=== PATIENT | female | born 1975 | race Two or more races ===

== ENCOUNTER 2020-07-27 18:48 | Emergency (ER) | payer MEDICAID ==
[~2020-07-27] VITALS: Ht 160 cm; Wt 87.1 kg
[2020-07-27 19:20] LABS: Basophils # (auto) 0.1 10 ^3/uL (0-0.2); Eosinophils # (auto) 0.7 10 ^3/uL (0-0.8); Lymphocytes # (auto) 2.7 10 ^3/uL (0.4-5.4); Neutrophils # (auto) 4.7 10 ^3/uL (1.6-8.6)
[2020-07-27 19:22] LABS: Basophils % (auto) 1.5 % (0.0-2.0); Eosinophils % (auto) 7.7 % (0.0-7.0); Hemoglobin 13.3 g/dL (12.2-16.2); Lymphocytes % (auto) 31.2 % (10.0-50.0); Mean Corpuscular Hemoglobin 25.8 pg (28.0-32.0); Mean Corpuscular Hgb Conc. 33.1 g/dL (32.0-36.0); Monocytes # (auto) 0.5 10 ^3/uL (0-1.3); Monocytes % (auto) 5.9 % (0.0-12.0); Neutrophils % (auto) 53.7 % (37.0-80.0); Platelet Count (auto) 426 10^3/uL (140-450); Red Blood Cells 5.13 10^6/uL (4.0-5.20); Red Cell Distribution Width 15.7 % (11.8-14.3); White Blood Cell 8.8 10^3/uL (4.4-10.8)
[2020-07-27] MEDS ORDERED: ASPirin 81 mg TAB PO ONE (19:30)
[2020-07-27 19:32] LABS: INR 1.08 (0.9-1.15); Partial Thromboplastin Time 29.4 sec (23.0-31.2)
[2020-07-27 19:38] LABS: Albumin 4.1 g/dL (3.4-5.0); Anion Gap 6 (5-15); Blood Urea Nitrogen 18 mg/dL (7-18); Calcium 8.3 mg/dL (8.5-10.1); Carbon Dioxide 22 mmol/L (21-32); Chloride 107 mmol/L (98-107); Glucose 91 mg/dL (74-106); Magnesium 2.5 mg/dL (1.6-2.6); Potassium 3.7 mmol/L (3.5-5.1); Sodium 135 mmol/L (136-145)
[2020-07-27 19:45] LABS: Alanine Aminotransferase 25 U/L (13-56); Alkaline Phosphatase 63 U/L (45-117); Aspartate Aminotransferase 18 U/L (15-37); Bilirubin, Total 0.5 mg/dL (0.2-1.0); GFR African American 87 mL/min; GFR Non-African American 72 mL/min; Total Protein 7.6 g/dL (6.4-8.2)
[2020-07-27 19:48] LABS: Beta HCG, Quantitative < 1 mlU/mL (1-3); Thyroid Stimulating Hormone 1.21 uIU/mL (0.358-3.74)
[2020-07-28 00:12] VITALS: BP 114/73
== END 2020-07-28 01:42 | disposition home or self-care (01) ==
LOC: ER 18:48
DX: R07.89 Other chest pain (principal); E78.5 Hyperlipidemia, unspecified
CPT/HCPCS: 36415; 71045; 80053; 83735; 83880; 84443; 84484; 84702; 85025; 85379; 85610; 85730; 93005

== ENCOUNTER 2025-01-17 16:35 | Inpatient (IN) | payer MEDICAID ==
[~2025-01-17] VITALS: Ht 160 cm; Wt 93.6 kg
--- NOTE | 2025-01-17 16:49 | ED.PDOC ---
HPI Comments 49 y.o female with PMHx of hyperlipidemia, presents to the ED for a chief complaint of substernal chest pain that started today at 1430. Patient reports pain presented while awaiting at the [facility] for a kidney ultrasound. Patient describes pain as a pressure, is non radiating and is constant with no alleviating factors. Patient denies any SOB, fever, chills, nausea, vomiting, back pain or palpitations. She also denies substance, alcohol or tobacco use. Chief Complaint: Chest Pain Time Seen by MD: 16:41 Primary Care Provider: unknown Reviewed Notes: Nurses Notes, Medications, Allergies Allergies: Coded Allergies: NO KNOWN ALLERGIES (Unverified , 01/17/25) Information Source: Patient Mode of Arrival: Ambulatory Severity: Moderate Timing: Hours Duration: Since onset Location: Substernal Radiation: No Radiation Quality: Pressure Onset: At Rest Cardiac Risk Factors: Hyperlipidemia PE Risk Factors: None History of: Similar pain in past Modifying Factors: Nothing Associated Signs and Symptoms: None Past Medical History PAST MEDICAL HISTORY: High Lipids Surgical History: SHANK PINNER History: No Pertinent SHANK PINNER History Family History Family History: Reviewed,noncontributory to illness Social History Smoker: Non-Smoker Alcohol: Denies ETOH Use Drugs: Denies Drug Use Lives In: Home Constitutional: denies: chills, diaphoresis, fatigue, fever, malaise, sweats, weakness, others EENTM: denies: blurred vision, double vision, ear bleeding, ear discharge, ear drainage, ear pain, ear ringing, eye pain, eye redness, hearing loss, mouth pain, mouth swelling, nasal discharge, nose bleeding, nose congestion, nose pain, photophobia, tearing, throat pain, throat swelling, voice changes, others Respiratory: denies: cough, hemoptysis, orthopnea, SOB at rest, shortness of breath, SOB with excertion, stridor, wheezing, others Cardiovascular: reports: chest pain; denies: dizzy spells, diaphoresis, Dyspnea on exertion, edema, irregular heart beat, left arm pain, lightheadedness, palpitations, PND, syncope, others Gastrointestinal: denies: abdomen distended, abdominal pain, blood streaked bowels, constipated, diarrhea, dysphagia, difficulty swallowing, hematemesis, melena, nausea, poor appetite, poor fluid intake, rectal bleeding, rectal pain, vomiting, others Genitourinary: denies: abnormal vagina bleeding, burning, dyspareunia, dysuria, flank pain, frequency, hematuria, incontinence, pain, , vagina discharge, urgency, others Neurological: denies: dizziness, fainting, headache, left sided numbness, left sided weakness, numbness, paresthesia, pre-existing deficit, right sided numbness, right sided weakness, seizure, speech problems, tingling, tremors, weakness, others Musculoskeletal: denies: back pain, gout, joint pain, joint swelling, muscle pain, muscle stiffness, neck pain, others Integumetry: denies: bruises, change in color, change in hair/nails, dryness, laceration, lesions, lumps, rash, wounds, others Allergic/Immunocompromised: denies: Difficulty Healing, Frequent Infections, Hives, Itching, others Hematologic/Lymphatic: denies: anemia, blood clots, easy bleeding, easy bruising, swollen glands, others Endocrine: denies: excessive hunger, excessive sweating, excessive thirst, excessive urination, flushing, intolerance to cold, intolerance to heat, unexplained weight gain, unexplained weight loss, others Psychiatric: denies: anxiety, bipolar disorder, depression, hopeless, panic disorder, schizophrenia, sleepless, suicidal, others All Other Systems: Reviewed and Negative Physical Exam General Appearance: Moderate Distress HEENT: Normal ENT Inspection, Pharynx Normal, TMs Normal Neck: Full Range of Motion, Non-Tender, Normal, Normal Inspection Respiratory: Chest Non-Tender, Lungs Clear, No Accessory Muscle Use, No Respiratory Distress, Normal Breath Sounds Cardiovascular: No Edema, No JVD, No Murmur, No Gallop, Tachycardia Breast Exam: Deferred Gastrointestinal: No Organomegaly, Non Tender, No Pulsatile Mass, Normal Bowel Sounds, Soft Genitalia: Deferred Pelvic: Deferred Rectal: Deferred Extremities: No calf tenderness, Normal capillary refill, Normal inspection, Normal range of motion, Non-tender, No pedal edema Musculoskeletal : Apperance: Normal Neurologic: Alert, rail walker II-XII nml as Tested, Motor Weakness, Normal Affect, Normal Mood, No Sensory Deficits Cerebellar Function: Normal Reflexes: Normal Skin: Dry, Normal Color, Warm Lymphatic: No Adenopathy EKG EKG : Pulse Rate (adult): 114 Cardiac Rhythm: ST Hypertrophy: LVH Was a procedure done? Was a procedure done?: No CP Differential Dx Differential Diagnosis: N/A Differential Diagnosis: Angina, Chest Wall Pain, Costochondritis, Myocardial Infarction, Pericarditis X-Ray, Labs, Meds, VS Vital Signs Date Time Temp Pulse Resp B/P (MAP) Pulse Ox O2 Delivery O2 Flow Rate FiO2 01/17/25 16:49 114 01/17/25 16:41 111 01/17/25 16:40 98.0 110 16 147/75 (99) 96 98.0 Lab Test 01/17/25 16:49 Range/Units White Blood Count 9.4 4.4-10.8 10^3/uL Red Blood Count 5.03 4.0-5.20 10^6/uL Hemoglobin 11.9 L 12.2-16.2 g/dL Hematocrit 36.6 36.0-46.0 % Mean Corpuscular Volume 72.8 L 80.0-100.0 fL Mean Corpuscular Hemoglobin 23.7 L 28.0-32.0 pg Mean Corpuscular Hemoglobin Concent 32.6 32.0-36.0 g/dL Red Cell Distribution Width 20.6 H 11.8-14.3 % Platelet Count 400 140-450 10^3/uL Mean Platelet Volume 7.1 6.9-10.8 fL Neutrophils (%) (Auto) 65.4 37.0-80.0 % Lymphocytes (%) (Auto) 23.8 10.0-50.0 % Monocytes (%) (Auto) 6.1 0.0-12.0 % Eosinophils (%) (Auto) 3.8 0.0-7.0 % Basophils (%) (Auto) 0.9 0.0-2.0 % Neutrophils # (Auto) 6.1 1.6-8.6 10 ^3/uL Lymphocytes # (Auto) 2.2 0.4-5.4 10 ^3/uL Monocytes # (Auto) 0.6 0-1.3 10 ^3/uL Eosinophils # (Auto) 0.4 0-0.8 10 ^3/uL Basophils # (Auto) 0.1 0-0.2 10 ^3/uL Nucleated Red Blood Cells 0.0 % D-Dimer, Quantitative 0.25 0.0-0.49 mg/L FEU Sodium Level 140 136-145 mmol/L Potassium Level 3.9 3.5-5.1 mmol/L Chloride Level 107 98-107 mmol/L Carbon Dioxide Level 22 20-31 mmol/L Anion Gap 11 5-15 Blood Urea Nitrogen 7 L 9-23 mg/dL Creatinine 0.68 0.550-1.02 mg/dL Glomerular Filtration Rate Calc 107 >90 mL/min BUN/Creatinine Ratio 10.3 10.0-20.0 Serum Glucose 120 H 74-106 mg/dL Calcium Level 9.5 8.7-10.4 mg/dL Troponin I High Sensitivity < 3 L </=34 ng/L Current Medications Medications (Trade) Dose Ordered Sig/Ollie Route Start Time Stop Time Status Last Admin Aspirin 162 mg ONCE ONCE PO 01/17/25 17:00 01/17/25 17:01 DC 01/17/25 17:44 IV Hep-Lock was established The patient was given aspirin 162 mg by mouth in the ER The patient's CBC and chemistry panel are within normal limits The troponin level is negative At this time the patient was remained tachycardic. The D-dimer test was done and it was negative The patient was being admitted at this time with acute chest pain and acute myocardial ischemia Images Reviewed?: Images reviewed and evaluated by me Time of 1ST Reevaluation: 16:46 Reevaluation 1ST: Unchanged Patient Education/Counseling: Diagnosis, Treatment, Prognosis Family Education/Counseling: No Family Present Departure 1 Departure Time of Disposition: 17:55 Impression: Primary Impression: Acute chest pain Additional Impression: Acute myocardial ischemia Disposition: 09 ADMITTED INPATIENT Admit to: [facility] Condition: Fair Critical Care Note Critical Care Time?: Yes (45 min-critical care time only) Stability Stability form required: Yes Unstable for transfer: Telemetry monitoring (Telemetry monitoring required), ED Physician Assesment (Clinical assesment) Heart Score Heart Score: Heart Score Response (Comments) Value History Slightly Suspicious 0 EKG Normal 0 Age 45-64 1 Risk Factors 1 or 2 risk factors 1 Troponin Normal limit 0 Total 2 I personally scribed for MARYBETH GREEN MD ([email or web address]) on 01/17/25 at 16:49. Electronically submitted by Jessy Goode ([facility]). MARYBETH GREEN MD Jan 17, 2025 16:49
--- NOTE | 2025-01-17 16:52 | ECG ---
[facility] Test Date: 2025-01-17 Test Time: 16:41:27 Pat Name: DAWIT THOMPSON Department: ER Room: [address] [place] [address] Gender: F Barker Operator: GP : 1975 Requested By: MARYBETH GREEN Order Number: [id number] Reading MD: Juliocesar Pineda Measurements Intervals [place] Rate: 111 P: 67 [place]: 142 QRS: 87 QRSD: 73 T: 17 QT: 320 QTc: 435 Interpretive Statements Sinus tachycardia Low voltage, precordial leads Borderline T abnormalities, anterior leads Baseline wander in lead(s) I,II,aVR Electronically Signed On 01-20-2025 13:25:32 PDT by Juliocesar Pineda Please click the below link to view image of tracing.
[2025-01-17 17:05] LABS: Basophils # (auto) 0.1 10 ^3/uL (0-0.2); Basophils % (auto) 0.9 % (0.0-2.0); Monocytes # (auto) 0.6 10 ^3/uL (0-1.3); Neutrophils % (auto) 65.4 % (37.0-80.0)
[2025-01-17 17:07] LABS: Eosinophils # (auto) 0.4 10 ^3/uL (0-0.8); Eosinophils % (auto) 3.8 % (0.0-7.0); Hematocrit 36.6 % (36.0-46.0); Hemoglobin 11.9 g/dL (12.2-16.2); Lymphocytes # (auto) 2.2 10 ^3/uL (0.4-5.4); Lymphocytes % (auto) 23.8 % (10.0-50.0); Mean Corpuscular Hemoglobin 23.7 pg (28.0-32.0); Mean Corpuscular Hgb Conc. 32.6 g/dL (32.0-36.0); Mean Corpuscular Volume 72.8 fL (80.0-100.0); Monocytes % (auto) 6.1 % (0.0-12.0); Neutrophils # (auto) 6.1 10 ^3/uL (1.6-8.6); Platelet Count (auto) 400 10^3/uL (140-450); Red Blood Cells 5.03 10^6/uL (4.0-5.20); Red Cell Distribution Width 20.6 % (11.8-14.3); White Blood Cell 9.4 10^3/uL (4.4-10.8)
--- NOTE | 2025-01-17 17:10 | DVH ---
CHEST RADIOGRAPH Indication: cp Technique: Single frontal view of the chest was obtained COMPARISON: CHEST XRAY 1 VIEW on DOS: 07/28/20 FINDINGS: Lines and Tubes: None Lungs: Clear Pleura: No effusion. No pneumothorax. Cardiomediastinal contours: Unremarkable Bones: Unremarkable IMPRESSION: 1. No acute disease.
[2025-01-17 17:13] LABS: Potassium 3.9 mmol/L (3.5-5.1); Sodium 140 mmol/L (136-145)
[2025-01-17 17:14] LABS: Anion Gap 11 (5-15); Carbon Dioxide 22 mmol/L (20-31)
[2025-01-17 17:15] LABS: Calcium 9.5 mg/dL (8.7-10.4)
[2025-01-17 17:19] LABS: BUN/Creatinine Ratio 10.3 (10.0-20.0); Chloride 107 mmol/L (98-107); Glucose 120 mg/dL (74-106)
[2025-01-17 17:20] LABS: Blood Urea Nitrogen 7 mg/dL (9-23)
[2025-01-17] MEDS: ASPirin 81 mg TAB PO ONE (17:44)
--- NOTE | 2025-01-17 17:53 | ECG ---
[facility] Test Date: 2025-01-17 Test Time: 17:52:10 Pat Name: DAWIT THOMPSON Department: ED Room: [address] [place] [address] Gender: F Commis Chef: SALLY : 1975 Requested By: MARYBETH GREEN Order Number: [id number] Reading MD: Juliocesar Pineda Measurements Intervals [place] Rate: 111 P: 59 [place]: 134 QRS: 88 QRSD: 76 T: 19 QT: 313 QTc: 426 Interpretive Statements Sinus tachycardia Low voltage, precordial leads Borderline T abnormalities, anterior leads Electronically Signed On 01-20-2025 13:59:07 PDT by Juliocesar Pineda Please click the below link to view image of tracing.
[2025-01-17] MEDS ORDERED: MORPHINE SULFATE INJ 2 MG/ml SYRG IV PRN (19:15)
[2025-01-17] MEDS ORDERED: NITROGLYCERIN 0.4 MG SL TAB SL PRN (19:15)
[2025-01-17] MEDS ORDERED: ONDANSETRON HCL 4 MG/2 ML VIAL IV PRN (19:15)
[2025-01-17] MEDS ORDERED: ACETAMINOPHEN 325 MG TAB PO PRN (19:15)
[2025-01-17 19:29] VITALS: PULSE 105; RESP 18; O2SAT 95
[2025-01-17 20:17] VITALS: BP 134/65; PULSE 91; RESP 14; TEMP 97.8
[2025-01-17] MEDS: ATORVASTATIN 20 MG TAB PO SCH (20:51)
[2025-01-17 21:28] LABS: Urine Bacteria None Seen /hpf (None Seen)
[2025-01-17 21:38] LABS: Urine Blood Negative /uL (Negative); Urine Clarity Clear (Clear); Urine Color Colorless (Yellow); Urine Protein, UAD Negative (Negative); Urine Specific Gravity 1.005 (1.001-1.035); Urine Squamous Epithelial Cell FEW /hpf (<5); Urine Urobilinogen Normal (Negative); Urine pH 5.5 (5.0-9.0)
--- NOTE | 2025-01-17 23:28 | DVHHP2 ---
History of Present Illness Reason for Visit: Chest pain History of Present Illness 49-year-old female presents for evaluation of chest pain. Patient reports a two day history of intermittent substernal chest pressure. She states the pain is nonradiating and not provoked. She denies shortness or breath, nausea or vomiting. No palpitations. Other acute complaints reported. Past Medical History Dyslipidemia Past Surgical History Family History Noncontributory Smoke: No ALCOHOL: none Drugs: None Lives: with Family Review of Systems Review of Systems Review of systems are currently negative otherwise addressed in HPI. Allergies: Coded Allergies: NO KNOWN ALLERGIES (Unverified , 01/17/25) Medications Current Medications Medications Dose Ordered Sig/Ollie Route Start Time Stop Time Status Last Admin Dose Admin Aspirin 81 mg DAILY PO 01/18/25 10:00 Atorvastatin Calcium 10 mg HS PO 01/17/25 22:00 Ondansetron HCl 4 mg Q4HP PRN IV 01/17/25 19:15 Acetaminophen 650 mg Q6HP PRN PO 01/17/25 19:15 Nitroglycerin 0.4 mg Q5MINP PRN SL 01/17/25 19:15 Morphine Sulfate 2 mg Q30M PRN IV 01/17/25 19:15 Exam Vital Signs Vital Signs Date Time Temp Pulse Resp B/P (MAP) Pulse Ox O2 Delivery O2 Flow Rate FiO2 01/17/25 20:17 97.8 91 14 134/65 (88) 97.8 01/17/25 20:17 Room Air* 0 21 01/17/25 19:35 96 Exam Gen: 49-year-old female in mild distress. Skin: Warm, dry, normal color and texture, no rash. HEENT: Normocephalic atraumatic, mucous membranes moist and pink. Neck: Cervical and supraclavicular nodes normal without enlargement, trachea is midline, thyroid gland is normal without masses. Pulmonary: Clear to auscultation and percussion bilaterally. Cardiac: Regular rate and rhythm. No murmur Abdomen: Soft, nontender, nondistended, bowel sounds present all 4 quadrants, no guarding, no rigidity, no organomegaly. Extremities: No cyanosis, clubbing, no edema Neuro: Cranial nerves II through XII grossly intact, normal affect and speech, no focal motor deficits. Labs/Xrays EKG normal sinus rhythm ORDERING PHYSICIAN: MARYBETH GREEN MD PROCEDURE(s): CXRP - CHEST PORTABLE REASON: cp ORDER NUMBER(s): [id number], ACCESSION NUMBER(s): [id number] CHEST RADIOGRAPH Indication: cp Technique: Single frontal view of the chest was obtained COMPARISON: CHEST XRAY 1 VIEW on DOS: 07/28/20 FINDINGS: Lines and Tubes: None Lungs: Clear Pleura: No effusion. No pneumothorax. Cardiomediastinal contours: Unremarkable Bones: Unremarkable IMPRESSION: 1. No acute disease. Labs Test 01/17/25 19:30 01/17/25 17:57 01/17/25 16:49 Range/Units Urine Color Colorless Yellow Urine Clarity Clear Clear Urine pH 5.5 5.0-9.0 Urine Specific [place] 1.005 1.001-1.035 Urine Protein Negative Negative Urine Ketones Negative Negative Urine Blood Negative Negative /uL Urine Nitrite Negative Negative Urine Bilirubin Negative Negative Urine Urobilinogen Normal Negative mg/dL Urine Leukocyte Esterase Negative Negative /uL Urine RBC <1 0 - 4 /hpf Urine Microscopic WBC 0-5 /HPF Urine Squamous Epithelial Cells Few <5 /hpf Urine Bacteria None seen None Seen /hpf Urine Glucose Normal Normal mg/dL Troponin I High Sensitivity < 3 L </=34 ng/L White Blood Count 9.4 4.4-10.8 10^3/uL Red Blood Count 5.03 4.0-5.20 10^6/uL Hemoglobin 11.9 L 12.2-16.2 g/dL Hematocrit 36.6 36.0-46.0 % Mean Corpuscular Volume 72.8 L 80.0-100.0 fL Mean Corpuscular Hemoglobin 23.7 L 28.0-32.0 pg Mean Corpuscular Hemoglobin Concent 32.6 32.0-36.0 g/dL Red Cell Distribution Width 20.6 H 11.8-14.3 % Platelet Count 400 140-450 10^3/uL Mean Platelet Volume 7.1 6.9-10.8 fL Neutrophils (%) (Auto) 65.4 37.0-80.0 % Lymphocytes (%) (Auto) 23.8 10.0-50.0 % Monocytes (%) (Auto) 6.1 0.0-12.0 % Eosinophils (%) (Auto) 3.8 0.0-7.0 % Basophils (%) (Auto) 0.9 0.0-2.0 % Neutrophils # (Auto) 6.1 1.6-8.6 10 ^3/uL Lymphocytes # (Auto) 2.2 0.4-5.4 10 ^3/uL Monocytes # (Auto) 0.6 0-1.3 10 ^3/uL Eosinophils # (Auto) 0.4 0-0.8 10 ^3/uL Basophils # (Auto) 0.1 0-0.2 10 ^3/uL Nucleated Red Blood Cells 0.0 % D-Dimer, Quantitative 0.25 0.0-0.49 mg/L FEU Sodium Level 140 136-145 mmol/L Potassium Level 3.9 3.5-5.1 mmol/L Chloride Level 107 98-107 mmol/L Carbon Dioxide Level 22 20-31 mmol/L Anion Gap 11 5-15 Blood Urea Nitrogen 7 L 9-23 mg/dL Creatinine 0.68 0.550-1.02 mg/dL Glomerular Filtration Rate Calc 107 >90 mL/min BUN/Creatinine Ratio 10.3 10.0-20.0 Serum Glucose 120 H 74-106 mg/dL Calcium Level 9.5 8.7-10.4 mg/dL Assessment/Plan Assessment/Plan Assessment Chest pain, etiology undetermined Dyslipidemia Obesity Plan Admit the patient to telemetry to the hospitalist Cardiology consultation Resume home medications Continue treatment per orders. Plan discussed with: Patient My Orders Orders - LISA HERNANDEZ AGACNP Procedure Category Date Status Time Aspirin Tablet PHA 01/18/25 In Process 10:00 Atorvastatin (Lipitor) PHA 01/17/25 In Process 22:00 * Cardiology Consult CONS 01/17/25 Transmitted 19:12 Admit ADMIT 01/17/25 Transmitted 19:12 Ondansetron Hcl PHA 01/17/25 In Process (Zofran) 19:15 Cardiac DIET 01/18/25 Transmitted Diet-2gna,Lofat,Lochol Breakfast Echo 2d Mode Cardiac US 01/17/25 Logged DOP 19:12 Condition: Fair RIKI 01/17/25 In Process 19:12 Acetaminophen Tablet PHA 01/17/25 In Process (Tylenol Tablet) 19:15 Bedrest With Bathroom RIKI 01/17/25 In Process Privileg 19:12 Nitroglycerin PHA 01/17/25 In Process Sublingual (Ntrostat 19:15 Morphine Sulfate PHA 01/17/25 In Process Injection 19:15 Stat Ekg For Chest RIKI 01/17/25 In Process Pain 19:12 Notify Md Of Changes RIKI 01/17/25 In Process From Base 19:12 Bell Staff For [facility] 01/17/25 In Process 24 Hours 19:12 Emergency Dysrhythmia [facility] 01/17/25 In Process Protocol 19:12 Rhythm Strips Once [facility] 01/17/25 In Process Every Shift 19:12 Oxygen By Nasal RT 01/17/25 Transmitted Cannula 19:12 Date of Service: Jan 17, 2025 Billing Provider: LISA HERNANDEZ Common Visit Codes: [id number] INP/OBS CARE (HIGH) LISA HERNANDEZ Jan 17, 2025 23:28
[2025-01-18 00:06] LABS: HDL Cholesterol 44 mg/dL (40-59)
[2025-01-18 00:08] LABS: Cholesterol 219 mg/dL (< 200); LDL Cholesterol 137 mg/dL (< 100); Triglycerides 334 mg/dL (< 150)
[2025-01-18 01:00] VITALS: BP 136/71; PULSE 90; RESP 12; TEMP 98; O2SAT 99
[2025-01-18 04:51] VITALS: BP 119/71; PULSE 86; RESP 18; TEMP 97.8; O2SAT 97
[2025-01-18 08:00] VITALS: BP 127/70; PULSE 78; RESP 18; TEMP 97.7; O2SAT 98
[2025-01-18] MEDS: ASPirin 81 mg TAB PO SCH (10:28)
--- NOTE | 2025-01-18 11:34 | DVHINCON2 ---
Date Seen: Jan 18, 2025 Referring Physician EMILY Wadsworth Reason for Consultation Chest pain History of Present Illness This is a pleasant Hungarian-speaking 49-year-old female who presented to the emergency room with a chief complaint of chest pain for 1.5 years. Describes her chest pain as substernal, radiating to the left inframammary area, pressure/sharp in nature, resembling "liquid being injected," and intermittent. She had a scheduled appointment with [facility] for a renal US when she developed the latest chest pain event and was referred to the nearest emergency room. Per patient she is scheduled for an outpatient stress test on 01/25/2025 with follow-up with Cardiology afterwards. Multiple 12 lead electrocardiograms x2 revealed a sinus tachycardia rhythm without evidence of ischemia. Serial troponin levels are negative. Of note, during assessment the chest pain was reproducible with palpation. Significant medical history includes dyslipidemia, prediabetes mellitus, history of anemia with blood transfusion, and obesity. Past Medical History Past medical history reviewed. No other significant than mentioned above. Past Surgical History C-sections x2 Family History: Cancer of tongue G8 FATHER Family History Family history reviewed. Not significant for cardiovascular disease. Social History Denies the use of illicit drugs, alcohol, or tobacco use. Allergies: Coded Allergies: NO KNOWN ALLERGIES (Unverified , 01/17/25) Home Meds No Active Prescriptions or Reported Meds Current Medications Current Medications Medications (Trade) Dose Ordered Sig/Ollie Route PRN Reason Start Time Stop Time Status Last Admin Aspirin 81 mg DAILY PO 01/18/25 10:00 01/18/25 10:28 Atorvastatin Calcium (Lipitor) 10 mg HS PO 01/17/25 22:00 Ondansetron HCl (Zofran) 4 mg Q4HP PRN IV NAUSEA / VOMITING 01/17/25 19:15 Acetaminophen (Tylenol Tablet) 650 mg Q6HP PRN PO PAIN SCALE 1-3 OR TEMP>100.4 01/17/25 19:15 Nitroglycerin (Ntrostat Sublingual) 0.4 mg Q5MINP PRN SL FOR CHEST PAIN 01/17/25 19:15 Morphine Sulfate 2 mg Q30M PRN IV FOR CHEST PAIN 01/17/25 19:15 Review of Systems Constitutional: No symptom reported Ears, Nose, & Throat: No symptom reported Eyes: No symptom reported Neurological: No symptoms reported Pulmonary/Respiratory: No symptom reported Cardiovascular: Chest pain Gastrointestinal: No symptom reported Genitourinary: No symptom reported Musculoskeletal: No symptom reported Skin: No symptom reported Psychiatric: No symptom reported Endocrine: No symptom reported Hemotologic/Lymphatic: No symptom reported Vital Signs Vital Signs Date Time Temp Pulse Resp B/P (MAP) Pulse Ox O2 Delivery O2 Flow Rate FiO2 01/18/25 08:00 97.7 78 18 127/70 (89) 98 97.7 01/17/25 20:17 Room Air* 0 21 Physical Exam General Appearance: Cooperative. Well developed. Obese. In no acute distress Head Exam: Normal inspection Neck Exam: Normal inspection. Non-tender. Normal alignment Pulmonary/Respiratory: Chest non-tender. Clear bilateral breath sounds Cardiovascular/Chest: Regular rate and rhythm. S1, S2. NSR. No murmurs. No JVD. Peripheral Pulses: 2+ Radial (R). 2+ Radial (L). 2+ Pedal (R). 2+ Pedal (L) Abdominal Exam: Normal bowel sounds. Soft. Nontender. No hepatospenomegaly. No masses Ankle Exam: Negative ankle edema Lower extremities: Negative lower extremity edema Neuro/Mental Status: A&O x4. Coherent Thoughts/Psych: Normal thought pattern. Appropriate mood and affect. Good judgement and insight Appearance: In no acute distress Skin Exam: Normal inspection. Normal color. Warm. Dry Labs/Diagnostic Data Labs Test 01/17/25 19:30 01/17/25 17:57 01/17/25 16:49 Range/Units Urine Color Colorless Yellow Urine Clarity Clear Clear Urine pH 5.5 5.0-9.0 Urine Specific [place] 1.005 1.001-1.035 Urine Protein Negative Negative Urine Ketones Negative Negative Urine Blood Negative Negative /uL Urine Nitrite Negative Negative Urine Bilirubin Negative Negative Urine Urobilinogen Normal Negative mg/dL Urine Leukocyte Esterase Negative Negative /uL Urine RBC <1 0 - 4 /hpf Urine Microscopic WBC 0-5 /HPF Urine Squamous Epithelial Cells Few <5 /hpf Urine Bacteria None seen None Seen /hpf Urine Glucose Normal Normal mg/dL Troponin I High Sensitivity < 3 L </=34 ng/L Triglycerides Level 334 H < 150 mg/dL Cholesterol Level 219 H < 200 mg/dL LDL Cholesterol 137 H < 100 mg/dL HDL Cholesterol 44 40-59 mg/dL Thyroid Stimulating Hormone (TSH) 1.05 0.55-4.78 uIU/mL White Blood Count 9.4 4.4-10.8 10^3/uL Red Blood Count 5.03 4.0-5.20 10^6/uL Hemoglobin 11.9 L 12.2-16.2 g/dL Hematocrit 36.6 36.0-46.0 % Mean Corpuscular Volume 72.8 L 80.0-100.0 fL Mean Corpuscular Hemoglobin 23.7 L 28.0-32.0 pg Mean Corpuscular Hemoglobin Concent 32.6 32.0-36.0 g/dL Red Cell Distribution Width 20.6 H 11.8-14.3 % Platelet Count 400 140-450 10^3/uL Mean Platelet Volume 7.1 6.9-10.8 fL Neutrophils (%) (Auto) 65.4 37.0-80.0 % Lymphocytes (%) (Auto) 23.8 10.0-50.0 % Monocytes (%) (Auto) 6.1 0.0-12.0 % Eosinophils (%) (Auto) 3.8 0.0-7.0 % Basophils (%) (Auto) 0.9 0.0-2.0 % Neutrophils # (Auto) 6.1 1.6-8.6 10 ^3/uL Lymphocytes # (Auto) 2.2 0.4-5.4 10 ^3/uL Monocytes # (Auto) 0.6 0-1.3 10 ^3/uL Eosinophils # (Auto) 0.4 0-0.8 10 ^3/uL Basophils # (Auto) 0.1 0-0.2 10 ^3/uL Nucleated Red Blood Cells 0.0 % D-Dimer, Quantitative 0.25 0.0-0.49 mg/L FEU Sodium Level 140 136-145 mmol/L Potassium Level 3.9 3.5-5.1 mmol/L Chloride Level 107 98-107 mmol/L Carbon Dioxide Level 22 20-31 mmol/L Anion Gap 11 5-15 Blood Urea Nitrogen 7 L 9-23 mg/dL Creatinine 0.68 0.550-1.02 mg/dL Glomerular Filtration Rate Calc 107 >90 mL/min BUN/Creatinine Ratio 10.3 10.0-20.0 Serum Glucose 120 H 74-106 mg/dL Calcium Level 9.5 8.7-10.4 mg/dL Assessment Chest pain rule out coronary artery disease Rule out structural heart disease Dyslipidemia Prediabetes Hx anemia with blood transfusion Obesity Plan/Recommendation (Dr. Pineda) Scheduled for a transthoracic echocardiogram to evaluate cardiac function. The patient presents with a Heart Score of two points pleasant her at a low risk for major cardiac events. We recommend continuation of outpatient ischemic workup as she is scheduled for a stress test on 01/25/2025 at [facility]. Continue lipid-lowering agent. Counseled on diet, exercise, and weight loss. In the setting of an unremarkable echocardiogram, there is no further cardiac workup indicated at this time. Kindly call if in need to re-consult. Thank you for allowing us to participate in this patient's care. This medical document was created using an electronic medical record system with voice recognition software and computerized dictation system. Although this document has been carefully reviewed, there might still be some phonetic and typographical errors. Occasional wrong-word or ``sound-alike substitutions may have occurred due to the inherent limitations of voice recognition software. These areas are purely typographical due to imperfections of the software programs and do not reflect any compromise in the patient's medical care. Please read the chart carefully and recognize, using context, where these substitutions have occurred. Plan discussed with: Patient, Other NYHA Physical activity limitations: NA Date of Service: Jan 18, 2025 Billing Provider: EUGENIE RIZO Cardiology Common Codes: [id number] INP/OBS CARE (High) EUGENIE RIZO Jan 18, 2025 11:34
--- NOTE | 2025-01-18 12:43 | DVHPN2 ---
Reviewed: Care Plan, H&P, Labs, Medications, Previous Orders, Radiology Changes from previous H/P or p: No Changes Objective Vitals Vital Signs Date Time Temp Pulse Resp B/P (MAP) Pulse Ox O2 Delivery O2 Flow Rate FiO2 01/18/25 08:00 97.7 78 18 127/70 (89) 98 97.7 01/17/25 20:17 Room Air* 0 21 Medications Current Medications Medications Dose Ordered Sig/Ollie Route Start Time Stop Time Status Last Admin Dose Admin Aspirin 81 mg DAILY PO 01/18/25 10:00 01/18/25 10:28 81 MG Atorvastatin Calcium 10 mg HS PO 01/17/25 22:00 Ondansetron HCl 4 mg Q4HP PRN IV 01/17/25 19:15 Acetaminophen 650 mg Q6HP PRN PO 01/17/25 19:15 Nitroglycerin 0.4 mg Q5MINP PRN SL 01/17/25 19:15 Morphine Sulfate 2 mg Q30M PRN IV 01/17/25 19:15 Laboratory Results Laboratory Tests 01/17/25 16:49 Chemistry Test 01/17/25 16:49 Calcium Level 9.5 mg/dL (8.7-10.4) Coagulation Test 01/17/25 16:49 D-Dimer, Quantitative 0.25 mg/L FEU (0.0-0.49) Lipid panel Test 01/17/25 17:57 Cholesterol Level 219 mg/dL (< 200) H HDL Cholesterol 44 mg/dL (40-59) Triglycerides Level 334 mg/dL (< 150) H HgA1c, TSH Test 01/17/25 17:57 Thyroid Stimulating Hormone (TSH) 1.05 uIU/mL (0.55-4.78) Urinalysis Test 01/17/25 19:30 Urine Color Colorless (Yellow) Urine Clarity Clear (Clear) Urine pH 5.5 (5.0-9.0) Urine Specific [place] 1.005 (1.001-1.035) Urine Protein Negative (Negative) Urine Ketones Negative (Negative) Urine Blood Negative /uL (Negative) Urine Nitrite Negative (Negative) Urine Bilirubin Negative (Negative) Urine Urobilinogen Normal mg/dL (Negative) Urine Leukocyte Esterase Negative /uL (Negative) Urine RBC <1 /hpf (0 - 4) Urine Microscopic WBC /HPF (0-5) Urine Squamous Epithelial Cells Few /hpf (<5) Urine Bacteria None seen /hpf (None Seen) Urine Glucose Normal mg/dL (Normal) Labs and/or images reviewed: Labs reviewed by me, Image(s) reviewed by me Assessment/Plan Assessment/Plan Chest pain rule out coronary artery disease negative x3 seen by Cardiology, no further cardiac workup, patient has Cardiolite stress test scheduled for 01/25/2025 at [place] Rule out structural heart disease Dyslipidemia Prediabetes Hx anemia with blood transfusion Obesity Cleared for discharge by Cardiology Plan discussed with: Patient Date of Service: Jan 18, 2025 Billing Provider: VJ ABARCA MD Common Visit Codes: [id number] INP/OBS CARE(HIGH) VJ ABARCA MD Jan 18, 2025 12:43
--- NOTE | 2025-01-18 12:47 | DVHDS2 ---
Discharge Summary Date of Admission Jan 17, 2025 at 19:12 Date of Discharge: Jan 18, 2025 Admitting Diagnosis Chest pain Wounds: None Labs/Diagnostic Data: Laboratory Results Test 01/17/25 19:30 01/17/25 17:57 01/17/25 16:49 Urine Color Colorless (Yellow) Urine Clarity Clear (Clear) Urine pH 5.5 (5.0-9.0) Urine Specific [place] 1.005 (1.001-1.035) Urine Protein Negative (Negative) Urine Ketones Negative (Negative) Urine Blood Negative /uL (Negative) Urine Nitrite Negative (Negative) Urine Bilirubin Negative (Negative) Urine Urobilinogen Normal mg/dL (Negative) Urine Leukocyte Esterase Negative /uL (Negative) Urine RBC <1 /hpf (0 - 4) Urine Microscopic WBC /HPF (0-5) Urine Squamous Epithelial Cells Few /hpf (<5) Urine Bacteria None seen /hpf (None Seen) Urine Glucose Normal mg/dL (Normal) Troponin I High Sensitivity < 3 ng/L (</=34) Triglycerides Level 334 mg/dL (< 150) Cholesterol Level 219 mg/dL (< 200) LDL Cholesterol 137 mg/dL (< 100) HDL Cholesterol 44 mg/dL (40-59) Thyroid Stimulating Hormone (TSH) 1.05 uIU/mL (0.55-4.78) White Blood Count 9.4 10^3/uL (4.4-10.8) Red Blood Count 5.03 10^6/uL (4.0-5.20) Hemoglobin 11.9 g/dL (12.2-16.2) Hematocrit 36.6 % (36.0-46.0) Mean Corpuscular Volume 72.8 fL (80.0-100.0) Mean Corpuscular Hemoglobin 23.7 pg (28.0-32.0) Mean Corpuscular Hemoglobin Concent 32.6 g/dL (32.0-36.0) Red Cell Distribution Width 20.6 % (11.8-14.3) Platelet Count 400 10^3/uL (140-450) Mean Platelet Volume 7.1 fL (6.9-10.8) Neutrophils (%) (Auto) 65.4 % (37.0-80.0) Lymphocytes (%) (Auto) 23.8 % (10.0-50.0) Monocytes (%) (Auto) 6.1 % (0.0-12.0) Eosinophils (%) (Auto) 3.8 % (0.0-7.0) Basophils (%) (Auto) 0.9 % (0.0-2.0) Neutrophils # (Auto) 6.1 10 ^3/uL (1.6-8.6) Lymphocytes # (Auto) 2.2 10 ^3/uL (0.4-5.4) Monocytes # (Auto) 0.6 10 ^3/uL (0-1.3) Eosinophils # (Auto) 0.4 10 ^3/uL (0-0.8) Basophils # (Auto) 0.1 10 ^3/uL (0-0.2) Nucleated Red Blood Cells 0.0 % D-Dimer, Quantitative 0.25 mg/L FEU (0.0-0.49) Sodium Level 140 mmol/L (136-145) Potassium Level 3.9 mmol/L (3.5-5.1) Chloride Level 107 mmol/L (98-107) Carbon Dioxide Level 22 mmol/L (20-31) Anion Gap 11 (5-15) Blood Urea Nitrogen 7 mg/dL (9-23) Creatinine 0.68 mg/dL (0.550-1.02) Glomerular Filtration Rate Calc 107 mL/min (>90) BUN/Creatinine Ratio 10.3 (10.0-20.0) Serum Glucose 120 mg/dL (74-106) Calcium Level 9.5 mg/dL (8.7-10.4) Other Laboratory Tests 01/17/25 16:49 Brief Hx & Hospital Course: 49-year-old female with a history of hypotension hyperlipidemia anemia with multiple blood transfusions came in for chest pain troponin was negative x3 seen by Cardiology the patient belongs to [facility] and she has an appointment on 01/25/2025 at [facility] for Cardiolite stress test. Patient being discharged home to resume her home medications and follow up with the [facility] for Cardiolite stress test. Cleared for discharge by Cardiology Consults/Reason for consult Cardiology Operations or Procedures None Condition at Discharge: Fair Final Diagnosis/Problems List Chest pain rule out coronary artery disease negative x3 seen by Cardiology, no further cardiac workup, patient has Cardiolite stress test scheduled for 01/25/2025 at [facility] Rule out structural heart disease Dyslipidemia Prediabetes Hx anemia with blood transfusion Obesity Discharge Disposition: Home Discharge Instruct/Medications Diet: Cardiac 2g Na,low cholest Activity: Light activity Follow Up/Referral: Resume all previous home medications Keep your appointment with [facility] for Cardiolite stress test on 01/25/2025 Medications: none 35 (Time taken for discharge summary 35 minutes) Discharge Statement: "Patient was advised to return to the ER or call 911 if any headaches, dizziness, shortness of breath, chest pain, abdominal pain, bleeding, fevers, or worsening of medical condition. Patient was counseled about treatment plan, medications, possible side effects, patientverbalized understanding. All questions were answered to the best of my ability. This discharge took greater then 30 minutes in planning, reviewing documentation, counseling the patient, and discussing with other team members." ASSESSMENT ASSESSMENT Hospital Course Improved Assessment Chest pain rule out coronary artery disease negative x3 seen by Cardiology, no further cardiac workup, patient has Cardiolite stress test scheduled for 01/25/2025 at [facility] Rule out structural heart disease Dyslipidemia Prediabetes Hx anemia with blood transfusion Obesity Date of Service: Jan 18, 2025 Billing Provider: VJ ABARCA MD Common Visit Codes: [id number] DISCH DAY >30min VJ ABARCA MD Jan 18, 2025 12:47
[2025-01-18 13:00] VITALS: BP 142/82; PULSE 84; RESP 18; TEMP 98.2; O2SAT 97
--- NOTE | 2025-01-19 16:55 | DVHSR ---
APPROVED REPORT EXAM: Two-dimensional and M-mode echocardiogram with Doppler and color Doppler. Blood Pressure: 119/71 mmHg INDICATION Chest Pain RISK FACTORS Obesity: Height: 5'3", Weight: 206 DIMENSIONS LVDd4.4 (3.8-5.7cm)LA (2D)3.7 (1.9-4.0cm)Aortic Root3.2 (2.0-3.7cm) LVDs2.8 (2.5-4.0cm)LA (MM) (1.9-4.0cm)Aortic Cusp Exc1.9 (1.5-2.0cm) EF (%) 65.0 (55-70%)Rt. Atrium4.0 (1.9-4.0cm)Asc. Aorta cm IVSd1.0 (0.7-1.1cm)RV (D)3.7 (1.8-2.4cm) PWd1.0 (0.7-1.1cm) Mitral Valve MitralMitral Stenosis E wave0.79m/sMV Mean GR.mmHg A wave0.78m/sMV Peak GR.mmHg E/A ratio1.02D MVAcm2 DECEL [id number] 1/2 [place] Aortic Valve Aortic ValveAortic Stenosis V10.93m/Ratna Mean GR.3mmHg V21.34m/Ratna Peak GR.7mmHg LVOT Diameter2.1 (1.8-2.4cm)Doppler AVA2.40cm2 Pulmonic Valve V21.19m/s Conclusion Technically good study sinus rhythm. Concentric LVH with left atrial enlargement. Mild aortic root enlargement. Valves are normal. EF of 60% with normal RV function. Dopplers unremarkable. No pericardial effusion masses or vegetations.
== END 2025-01-18 14:10 | disposition home or self-care (01) | DRG 203 ==
LOC: ER 16:35 → OVERFLOW 19:12
PROVIDERS: ADMIT Family Medicine; ATTEND Family Medicine
DX: R07.89 Other chest pain (principal); I95.9 Hypotension, unspecified; D64.9 Anemia, unspecified; E66.9 Obesity, unspecified; E78.5 Hyperlipidemia, unspecified; R73.03 Prediabetes; R00.0 Tachycardia, unspecified; Z98.891 History of uterine scar from previous surgery; Z80.8 Family history of malignant neoplasm of other organs or systems; Z68.36 Body mass index [BMI] 36.0-36.9, adult
CPT/HCPCS: 36415; 71045; 80048; 80061; 81001; 84443; 84484; 85025; 85379; 93005; 93306; 99291; G0378